=== PATIENT | male | born 1950 | race Caucasian/White ===

== ENCOUNTER 2024-11-14 17:50 | Emergency (ER) | payer OTHER, BC, MEDICARE, SELFPAY ==
[2024-11-14 18:01] VITALS: BP 169/119
--- NOTE | 2024-11-14 18:31 | ED.GENMED ---
History of Present Illness
General
Chief Complaint: Urinary Symptoms
Source: patient
Exam Limitations: none
Time Seen by Provider: 11/14/24 18:22
History of Present Illness
History of Present Illness:
See MDM
Past History
Past History
ED Past Medical History: Other (pneumo) and Other (in recovery)
ED Past Surgical History: Other (Hernia repair)
Social History
Tobacco: Former smoker
Personal:
Living: with family
Employment: Employed
Phy Exam
Physical Exam
Physical Exam:
See MDM
Course
Vital Signs
Initial and Last Documented VS:
Initial Vital Signs
Temp Pulse Resp BP Pulse Ox
97.9 F 117 20 169/119 97
11/14/24 18:01 11/14/24 18:01 11/14/24 18:01 11/14/24 18:01 11/14/24 18:01
Last Documented Vital Signs
Temp Pulse Resp BP Pulse Ox
97.9 F 117 20 169/119 97
11/14/24 18:01 11/14/24 18:01 11/14/24 18:01 11/14/24 18:01 11/14/24 18:01
MDM/Problems Addressed
Differential Diagnosis Includes:
HPI and MDM Narrative:
74-year-old male presenting with urinary retention. Patient had hernia repair earlier today. He was unable to pee so they provided IV fluids. Patient was still unable to pee but he was sent home with return precautions. Since patient was
uncomfortable and still unable to urinate, he was sent to the emergency department for Rhodes catheter placement. A Rhodes catheter was placed immediately and over 1000 mL of urine returned. Immediately, patient felt better. Patient's is allergic
to Flomax but states Cialis does help somewhat. We did discuss having conversation with urologist in regards to TURP
Physical exam
General: Well appearing and non-toxic
HEENT: protecting airway
Neck: appears supple
CV: No evidence of cyanosis
Resp: No accessory muscle use
Abd: Non-distended and nontender. Surgical incisiosn clean and intact
Extremities: No deformities
Neuro: alert
Psych: Normal affect
Skin: Intact
Problems Addressed including Acute and Chronic Conditions affecting care:
1. Urinary retention
Acuity: acute
Prognosis: stable
Details: Likely related to anesthesia. Symptoms resolved after Rhodes catheter placed. Discussed follow-up with PCP and neurologist to have it removed
Differential Diagnosis (but not limited to): Urinary retention, BPH
Testing considered: Urinalysis
Drug therapy (if applicable): OTC meds, please see d/c instruction regarding Rx drugs
Amount and/or Complexity of Data Reviewed
Clinical info obtained from: Patient
External data reviewed: N/A
Labs I independently reviewed (but not limited to): N/A
Radiology: N/A
Pulse Ox: not hypoxic
EKG independently reviewed: N/A
Core Stripper: N/A
Critical Care: N/A
Risk of Complication:
Social Determinants of health: Good social support
Discussed with other providers: N/A
Escalation of Care includes Admit/Obs: After being observed in the Emergency Department, pt stable for discharge.
Occasional wrong word or 'sound a like' substitutions may have occurred due to the inherent limitations of voice recognition software. Read the chart carefully and recognize, using context, where substitutions have occurred.
*Critical Care Note
Total Time (30-74mins, 75-104mins- exclusive of procedures): Not Applicable
ED Attending Note
-
Portions of this chart may have been created with voice recognition software.� Occasional wrong word or��sound alike� substitutions may have occurred due to the inherent limitations of voice recognition software.
Discharge Plan
Departure
Patient Disposition: Home (Routine Discharge)
Date of Disposition: 11/14/24
Time of Disposition: 18:31
Patient with high blood pressure during this ER visit?: Yes
Discharge Problem:
Acute urinary retention
Instructions: BLOOD PRESSURE
Prescriptions:
No Action
ibuprofen 600 MG tablet
600 mg PO Q6HPRN PRN (Reason: pain) Qty: 20 0RF
Activity Restrictions/Additional Instructions:
As we discussed, the urinary retention is likely related to the anesthesia you had today. It will likely run its course the next day or two. Please follow-up with your primary care doctor and your urologist. Since you are not a candidate for
Flomax, please talk to your doctor whether or not you are a candidate for a TURP.
Interventions
Interventions:
*Risk Screen - Suicide Last Done: 11/14/24 18:01
ED-Male Genitourinary Assessment Last Done: 11/14/24 18:25
Discharge Date and Time
Print Language: SAMMARINESE
== END 2024-11-14 19:07 | disposition home or self-care (01) ==
LOC: EMR 17:50
PROVIDERS: EMERGENCY PHYSICIAN Student in an Organized Health Care Education/Training Program; FAMILY PHYSICIAN Family Medicine
DX: R33.9 Retention of urine, unspecified (principal); R03.0 Elevated blood-pressure reading, without diagnosis of hypertension; Z98.890 Other specified postprocedural states; Z87.891 Personal history of nicotine dependence; Z88.1 Allergy status to other antibiotic agents; Z88.5 Allergy status to narcotic agent; Z88.8 Allergy status to other drugs, medicaments and biological substances
CPT/HCPCS: 99284; 51702

== ENCOUNTER 2024-11-16 00:16 | Emergency (ER) | payer BC, MEDICARE, SELFPAY ==
[2024-11-16 00:18] VITALS: BP 196/90
--- NOTE | 2024-11-16 01:09 | ED.GENMED ---
History of Present Illness
General
Chief Complaint: Catheter/Tube Problem
Source: patient
Exam Limitations: none
Time Seen by Provider: 11/16/24 00:47
Nursing documentation reviewed up to this point in time: agreed with
History of Present Illness
History of Present Illness:
74-year-old male presents to the emergency department due to Rhodes catheter not draining. He switched the leg bag to the larger bag and it was not draining. He denies any fevers. He noted there was some blood. He had hernia repair at [facility],
on Thursday. He was unable to void and had a catheter placed.
Past History
Past History
ED Past Medical History: Other (pneumo) and Other (in recovery)
ED Past Surgical History: Other (Hernia repair)
Social History
Tobacco: Former smoker
Alcohol: None
Personal:
Living: with family
Employment: Employed
Review of Systems
Review of Systems
Allergies reviewed?: Yes
All Other Systems: Not applicable
Constitutional: Reports no symptoms
EENT: Reports no symptoms
Respiratory: Reports no symptoms
Cardiac: Reports no symptoms
ABD/GI: Reports no symptoms
: Reports difficulty voiding
Musculoskeletal: Reports no symptoms
Skin: Reports no symptoms
Neurological: Reports no symptoms
Endocrine: Reports no symptoms
Hematologic/Lymphatic: Reports no symptoms
Psychiatric: Reports no symptoms
Phy Exam
Physical Exam
Physical Exam:
Physical Exam
General: no apparent distress, not acutely ill
Neck: supple. no meningeal signs. normal posterior pharynx
Heart: equal radial pulses.
HEENT: Pupils equal round reactive to light, EOMI
Lungs: no acute respiratory distress.
Abdomen: not tender. no CVAT, healing incision right inguinal region
Neuro: alert and oriented. no focal neurological deficits cranial nerves II through XII intact
Skin: no rash
Psychiatric: well kept. interactive and cooperative
Extremities: no edema. good distal pulses
Course
Orders/Labs/Results
Orders:
Orders
11/16/24 00:57
Bladder Scan- Treatment ONCE
Vital Signs
Initial and Last Documented VS:
Initial Vital Signs
Temp Pulse Resp BP Pulse Ox
97.9 F 78 20 196/90 97
11/16/24 00:18 11/16/24 00:18 11/16/24 00:18 11/16/24 00:18 11/16/24 00:18
Last Documented Vital Signs
Temp Pulse Resp BP Pulse Ox
97.9 F 78 20 196/90 97
11/16/24 00:18 11/16/24 00:18 11/16/24 00:18 11/16/24 00:18 11/16/24 00:18
MDM/Problems Addressed
Differential Diagnosis Includes:
Rhodes obstruction, urinary retention
MDM/Problems Addressed:
74-year-old male with Rhodes catheter dysfunction. Rhodes flushed and draining well. Patient has follow-up at urology at 9:15 AM tomorrow.
Chronic conditions affecting care: Previous abdomnial surgery
Acute Exacerbation and/or Progression of Chronic Illness: Previous abdomnial surgery
*Pulse Oximetry
Patient hypoxic: no
*Critical Care Note
Total Time (30-74mins, 75-104mins- exclusive of procedures): Not Applicable
Patient Management
Social determinants of health affecting care: Living situation and Strong social support
Escalation/DeEscalation of care consider admission/obs:
Admit not indicated
ED Attending Note
-
Portions of this chart may have been created with voice recognition software.� Occasional wrong word or��sound alike� substitutions may have occurred due to the inherent limitations of voice recognition software.
Discharge Plan
Departure
Patient Disposition: Home (Routine Discharge)
Date of Disposition: 11/16/24
Time of Disposition: 01:10
Patient with high blood pressure during this ER visit?: Yes
Condition: Good
Discharge Problem:
Complication, blocked Rhodes catheter
Instructions: How to Care for Your Rhodes Catheter, Male, BLOOD PRESSURE
Prescriptions:
No Action
ibuprofen 600 MG tablet
600 mg PO Q6HPRN PRN (Reason: pain) Qty: 20 0RF
Referrals:
Carina Baumann DO [Family Provider] -
Activity Restrictions/Additional Instructions:
Follow-up with your urologist as scheduled tomorrow
Interventions
Interventions:
*Risk Screen - Suicide Last Done: 11/16/24 00:18
*Neglect/Abuse Screening Last Done: 11/16/24 00:18
Discharge Date and Time
Print Language: [email or web address]
== END 2024-11-16 01:35 | disposition home or self-care (01) ==
LOC: EMR 00:16
PROVIDERS: EMERGENCY PHYSICIAN Emergency Medicine; FAMILY PHYSICIAN Family Medicine
DX: T83.091A Other mechanical complication of indwelling urethral catheter, initial encounter (principal); Y73.8 Miscellaneous gastroenterology and urology devices associated with adverse incidents, not elsewhere classified; Z87.891 Personal history of nicotine dependence
CPT/HCPCS: 99282